=== PATIENT | female | born 1995 | race Caucasian/White ===

== ENCOUNTER 2018-12-07 18:24 | Emergency (ER) | payer SELFPAY ==
[~2018-12-07] VITALS: Ht 172.7 cm; Wt 63.5 kg
[2018-12-07] MEDS ORDERED: ONDANSETRON 4 MG/2 ML (SDV) Z0FRAN ONE (18:48)
[2018-12-07] MEDS ORDERED: ONDANSETRON 4 MG/2 ML (SDV) Z0FRAN IVP ONE ×2 (19:00→20:15)
[2018-12-07 19:11] LABS: BASOPHILS % (AUTO) 0 % (0-10); EOSINOPHILS % (AUTO) 0 % (0-10); HEMATOCRIT 46 % (35-52); HEMOGLOBIN 16.2 G/DL (11.5-16.0); LYMPHOCYTES # (AUTO) 0.5 X 10^3 (1.0-4.0); LYMPHOCYTES % (AUTO) 3 % (12-44); MEAN CORPUSCULAR HEMOGLOBIN 31 PG (25-34); MEAN CORPUSCULAR HGB CONC 36 G/DL (32-36); MEAN CORPUSCULAR VOLUME 88 FL (80-99); MEAN PLATELET VOLUME 10.6 FL (7.4-10.4); MONOCYTES # (AUTO) 0.5 X 10^3 (0.0-1.0); MONOCYTES % (AUTO) 3 % (0-12); NEUTROPHILS # (AUTO) 15.8 X 10^3 (1.8-7.8); NEUTROPHILS % (AUTO) 94 % (42-75); PLATELET COUNT 252 10^3/uL (130-400); RED CELL DISTRIBUTION WIDTH 12.5 % (10.0-14.5); WHITE BLOOD COUNT 16.8 10^3/uL (4.3-11.0)
[2018-12-07] MEDS ORDERED: LACTATED RINGERS 1,500 ML IV PRN (19:15)
[2018-12-07 19:24] LABS: ALANINE AMINOTRANSFERASE 28 U/L (0-55); ALBUMIN 5.2 GM/DL (3.2-4.5); ALKALINE PHOSPHATASE 59 U/L (40-136); CALCIUM 10.9 MG/DL (8.5-10.1); CARBON DIOXIDE 18 MMOL/L (21-32); CHLORIDE 106 MMOL/L (98-107); GLUCOSE 128 MG/DL (70-105); POTASSIUM 3.7 MMOL/L (3.6-5.0); SODIUM 140 MMOL/L (135-145); TOTAL PROTEIN 8.9 GM/DL (6.4-8.2)
[2018-12-07 19:33] LABS: BAND NEUTROPHILS 1 %; BASOPHILS % (MANUAL) 0 %; EOSINOPHILS % (MANUAL) 0 %; LYMPHOCYTES % (MANUAL) 4 %; MONOCYTES % (MANUAL) 3 %; NEUTROPHILS % (MANUAL) 92 %
[2018-12-07 19:34] LABS: RBC MORPH NORMAL
--- NOTE | 2018-12-07 20:04 | ED GI ---
General Chief Complaint: Abdominal/GI Problems Stated Complaint: VOMITTING ALL DAY Nursing Triage Note: PATIENT HERE FOR COMPLAINTS OF VOMITING AND DIARRHEA EVERY 30-60 MINS SINCE 0700 TODAY. DENIES AND PAIN BUT STATES HER STOMACH IS "CHURNING." Sepsis Screen: No Definite Risk Source of Information: Patient, Other Exam Limitations: No Limitations History of Present Illness Date Seen by Provider: Dec 07, 2018 Time Seen by Provider: 18:36 Initial Comments Patient presents to ER by private conveyance with chief complaint of nausea vomiting and diarrhea all day. No fevers or chills. Her brother last week had similar symptoms which resolved spontaneously. She does not have a history of IBS or IBD. She states she does have chronic loose stools but has never had this worked up. No blood in the stool or vomitus. All over abdominal pain worse on the right side of her belly than left. It's improved after she vomits but worse just prior to vomiting. She has not had any Tylenol, ibuprofen etc. She has no history of surgeries on her abdomen. Allergies and Home Medications Allergies Coded Allergies: No Known Drug Allergies (Unverified , 12/07/18) Patient Home Medication List Home Medication List Reviewed: Yes Review of Systems Review of Systems Constitutional: No chills, No diaphoresis, No fever EENTM: No Blurred Vision, No Double Vision Respiratory: Denies Cough, Denies Shortness of Air Cardiovascular: Denies Chest Pain, Denies Edema Gastrointestinal: Denies Abdomen Distended; Abdominal Pain; Denies Constipated ; Diarrhea, Nausea, Vomiting Genitourinary: Denies Burning, Denies Discharge, Denies Drainage Musculoskeletal: No back pain, No joint pain Psychiatric/Neurological: Denies Anxiety, Denies Depressed Past Ybfgkhj-Genpdq-Ivsqur Hx Patient Social History Alcohol Use: Rarely Uses Recreational Drug Use: No Smoking Status: Never a Smoker 2nd Hand Smoke Exposure: No Recent Foreign Travel: No Contact w/Someone Who Travel: No Recent Infectious Disease Expo: No Recent Hopitalizations: No Physical Abuse: No Sexual Abuse: No Seasonal Allergies Seasonal Allergies: No Past Medical History Surgeries: Yes (WISDOM) Respiratory: No Cardiac: No Neurological: No Genitourinary: No Gastrointestinal: No Musculoskeletal: No Endocrine: No HEENT: No Cancer: No Psychosocial: No Integumentary: No Blood Disorders: No Physical Exam Vital Signs Vital Signs - First Documented 12/07/18 18:30 Temp 98.8 Pulse 118 Resp 18 B/P (MAP) 117/79 (92) Pulse Ox 96 Capillary Refill : Less Than 3 Seconds Height/Weight/BMI Height: 5'8.00" Weight: 140lbs. 0oz. [id number]; BMI Method:Stated General Appearance: WD/WN, mild distress HEENT: PERRL/EOMI, normal ENT inspection, pharynx normal (. Oropharynx mildly dry) Respiratory: lungs clear, normal breath sounds, no respiratory distress, no accessory muscle use Cardiovascular: normal peripheral pulses, regular rate, rhythm, no edema Peripheral Pulses: 2+ Dorsalis Pedis (R), 2+ Left Dors-Pedis (L) Gastrointestinal: normal bowel sounds, soft, no organomegaly; No rebound; tenderness (all 4 quadrants but especially right upper and right lower), other ( negative for Jj sign or rebound tenderness over McBurney's point. No mesenteric or psoas signs.) Extremities: normal inspection, no pedal edema, normal capillary refill Progress/Results/Core Measures Results/Orders Lab Results Laboratory Tests Test 12/07/18 18:45 12/07/18 20:04 Range/Units White Blood Count 16.8 H 4.3-11.0 10^3/uL Red Blood Count 5.16 4.35-5.85 10^6/uL Hemoglobin 16.2 H 11.5-16.0 G/DL Hematocrit 46 35-52 % Mean Corpuscular Volume 88 80-99 FL Mean Corpuscular Hemoglobin 31 25-34 PG Mean Corpuscular Hemoglobin Concent 36 32-36 G/DL Red Cell Distribution Width 12.5 10.0-14.5 % Platelet Count 252 130-400 10^3/uL Mean Platelet Volume 10.6 H 7.4-10.4 FL Neutrophils (%) (Auto) 94 H 42-75 % Lymphocytes (%) (Auto) 3 L 12-44 % Monocytes (%) (Auto) 3 0-12 % Eosinophils (%) (Auto) 0 0-10 % Basophils (%) (Auto) 0 0-10 % Neutrophils # (Auto) 15.8 H 1.8-7.8 X 10^3 Lymphocytes # (Auto) 0.5 L 1.0-4.0 X 10^3 Monocytes # (Auto) 0.5 0.0-1.0 X 10^3 Eosinophils # (Auto) 0.0 0.0-0.3 10^3/uL Basophils # (Auto) 0.0 0.0-0.1 10^3/uL Neutrophils % (Manual) 92 % Lymphocytes % (Manual) 4 % Monocytes % (Manual) 3 % Eosinophils % (Manual) 0 % Basophils % (Manual) 0 % Band Neutrophils 1 % Blood Morphology Comment NORMAL Sodium Level 140 135-145 MMOL/L Potassium Level 3.7 3.6-5.0 MMOL/L Chloride Level 106 98-107 MMOL/L Carbon Dioxide Level 18 L 21-32 MMOL/L Anion Gap 16 H 5-14 MMOL/L Blood Urea Nitrogen 20 H 7-18 MG/DL Creatinine 1.10 0.60-1.30 MG/DL Estimat Glomerular Filtration Rate > 60 BUN/Creatinine Ratio 18 Glucose Level 128 H 70-105 MG/DL Calcium Level 10.9 H 8.5-10.1 MG/DL Corrected Calcium 8.5-10.1 MG/DL Total Bilirubin 1.0 0.1-1.0 MG/DL Aspartate Amino Transf (AST/SGOT) 35 H 5-34 U/L Alanine Aminotransferase (ALT/SGPT) 28 0-55 U/L Alkaline Phosphatase 59 40-136 U/L C-Reactive Protein High Sensitivity 0.86 H 0.00-0.50 MG/DL Total Protein 8.9 H 6.4-8.2 GM/DL Albumin 5.2 H 3.2-4.5 GM/DL Urine Color YELLOW Urine Clarity SLIGHTLY CLOUDY Urine pH 5 5-9 Urine Specific [place] 1.015 L 1.016-1.022 Urine Protein 2+ H NEGATIVE Urine Glucose (UA) NEGATIVE NEGATIVE Urine Ketones 4+ H NEGATIVE Urine Nitrite NEGATIVE NEGATIVE Urine Bilirubin NEGATIVE NEGATIVE Urine Urobilinogen NORMAL NORMAL MG/DL Urine Leukocyte Esterase NEGATIVE NEGATIVE Urine RBC (Auto) 3+ H NEGATIVE Urine RBC 2-5 H /HPF Urine WBC 2-5 /HPF Urine Squamous Epithelial Cells 10-25 H /HPF Urine Crystals NONE /LPF Urine Bacteria FEW H /HPF Urine Casts NONE /LPF Urine Mucus LARGE H /LPF Urine Culture Indicated NO Micro Results Microbiology 12/07/18 Influenza Types A,B Antigen (MONE) - Final, Complete My Orders Orders - SHANTA,MYRIAM J Ua Culture If Indicated (12/07/18 18:27) Influenza A And B Antigens (12/07/18 18:27) Ondansetron Injection (Zofran Injectio (12/07/18 18:48) Urine Bedside (12/07/18 18:54) Ondansetron Injection (Zofran Injectio (12/07/18 19:00) Cbc With Automated Diff (12/07/18 19:04) Comprehensive Metabolic Panel (12/07/18 19:04) Hs C Reactive Protein (12/07/18 19:04) Saline Lock/Iv-Start (12/07/18 19:04) Lactated Ringers (Lr 1000 Ml Iv Solution (12/07/18 19:15) Manual Differential (12/07/18 18:45) Ondansetron Injection (Zofran Injectio (12/07/18 20:15) Medications Given in ED Current Medications Medications Dose Ordered Sig/Anna Route Start Time Stop Time Status Last Admin Dose Admin Lactated Ringer's 1,500 ml @ 1,500 mls/hr PRN PRN IV 12/07/18 19:15 12/07/18 19:20 1,500 MLS/HR Ondansetron HCl 4 mg ONCE ONCE IVP 12/07/18 19:00 12/07/18 19:01 DC 12/07/18 18:50 4 MG Ondansetron HCl 4 mg ONCE ONCE IVP 12/07/18 20:15 12/07/18 20:16 DC 12/07/18 20:16 4 MG Vital Signs/I&O 12/07/18 18:30 Temp 98.8 Pulse 118 Resp 18 B/P (MAP) 117/79 (92) Pulse Ox 96 Blood Pressure Mean: 92 Progress Progress Note #1: Time: 20:03 Progress Note She's had a sick contact with similar symptoms and sounds like viral gastroenteritis colitis however she is tender in her right lower quadrant. Some Zofran fixed her nausea but her diarrhea still going. We can consider doing a CT to rule out appendicitis but she's quite comfortable at this time. We'll offer it to her. Give her 1500 cc of LR which is little more than 20 cc/kg. Progress Note #2: Time: 20:51 Progress Note We discussed at length the opportunity to do a CT. She is not really having any significant abdominal pain at this time. Her abdominal exam is even less remarkable now. Still no mesenteric signs. Her nausea is under control after a second dose of Zofran. She would prefer just to follow-up and he is with her primary doctor. I think is reasonable to take a conservative approach as this does appear to be like viral gastroenteritis and colitis. She also has a sick contact in her brother with similar symptoms. We'll send her home with some Zofran and a prescription for that. We have instructed her on return precautions and how to use the Imodium appropriately. We've encouraged lots of fluids. She is looking and feeling much better after IV fluids. Departure Impression Primary Impression: Gastroenteritis and colitis, viral Disposition: HOME, SELF-CARE Condition: Improved Departure-Patient Inst. Decision time for Depature: 20:52 Referrals: NO,LOCAL PHYSICIAN (PCP) Primary Care Physician Patient Instructions: Viral Gastroenteritis, Adult (DC) Add. Discharge Instructions: Drink plenty of fluids. Sports drinks such as Powerade or Gatorade are encouraged. You can use Imodium 2 tablets to start and then one tablet every 4 hours if you' re still having watery stools. Usually best to allow the diarrhea go on for 24- 48 hours before trying to stop it. If you have any nausea use the Zofran 1-2 tablets every 6 hours as needed to control your nausea. If your pain is worse than what Tylenol or Motrin can control or is persistent then you should return to the nearest ER for reevaluation. If you begin to have fevers above 102.5 been he should follow-up with the ER nearest you. Follow-up next week with primary care for reevaluation. All discharge instructions reviewed with patient and/or family. Voiced understanding. Scripts Ondansetron (Ondansetron Odt) 4 Mg Tab.rapdis 4-8 MG PO Q6H PRN for NAUSEA/VOMITING, #20 TAB 0 Refills Prov: MYRIAM WOMACK 12/07/18 MYRIAM WOMACK Dec 07, 2018 20:03
[2018-12-07 20:13] LABS: BILIRUBIN,URINE NEGATIVE (NEGATIVE); CLARITY,URINE SLIGHTLY CLOUDY; COLOR,URINE YELLOW; GLUCOSE, URINE (UA) NEGATIVE (NEGATIVE); KETONES,URINE 4+ (NEGATIVE); LEUKOCYTE ESTERASE ,URINE NEGATIVE (NEGATIVE); NITRITE,URINE NEGATIVE (NEGATIVE); PH,URINE 5 (5-9); PROTEIN,URINE 2+ (NEGATIVE); UROBILINOGEN,URINE NORMAL (NORMAL)
[2018-12-07 20:22] LABS: BACTERIA,URINE FEW /HPF
[2018-12-07 20:32] LABS: BUN/CREATININE RATIO 18
[2018-12-07] MEDS ORDERED: ONDA4TAB11 PO (20:57)
[2018-12-07] MEDS ORDERED: RX-ONDANSETRON 4 MG ODT (ZOFRAN) PPK #4 PO STA (20:58)
[2018-12-07 21:05] VITALS: BP 117/79
[2018-12-07 22:11] LABS: GFR ESTIMATED > 60
--- OUTSIDE RECORDS SUMMARY | 2018-12-09 10:10 | XMS REPORT | Continuity of Care Document ---
Author Author [facility] Organization [facility] Address Unknown Phone Unavailable Allergies Active Description Code Type Severity Reaction Onset Reported/Identified Relationship to Patient Clinical Status Yes No Known Medication Allergies ##NOMEN##,AL1,ceStruct, allergy,[id number] Drug N/A N/A Yes NKDA NKDA N/A N/A 07/28/2009 Yes No Known Drug Allergies [id number] Drug Allergy Mild nkda 10/27/2011 Yes No Known Drug Allergies [id number] Drug Allergy Unknown N/A 12/07/2018 Medications Medication Packaging Start Date Stop Date Route Dosage Sig MUCINEX FOR KIDS 07/28/2009 ORAL otcotc q6h Ibuprofen 200 MG 07/23/2012 600 MG PRN Acetaminophen 500 MG 07/23/2012 500 MG PRN AUGMENTIN CAP 04/24/2013 ORAL [id number] twice daily Norethindrone-E.estradiol-Iron 1MG-10(24) 05/26/2016 1 TABLET DAILY Albuterol Sulfate Hfa 90 MCG 08/2017 2 PUFFS Q4H Norgestimate-Ethinyl Estradiol 0.25 MG-35 MCG 10/05/2017 1 TAB DAILY Problems Date Dx Coded Attending Type Code Diagnosis Diagnosed By 04/24/2013 YVONNE ZURITA, VICKI Wan 462 ACUTE PHARYNGITIS 05/09/2017 Jessica Araujo Other S81.051A OPEN BITE RIGHT KNEE INITIAL ENCOUNTER 05/09/2017 Jessica Araujo Other W54.0XXA BITTEN BY DOG INITIAL ENCOUNTER 05/09/2017 Jessica Araujo Other Z23 ENCOUNTER FOR IMMUNIZATION 07/11/2017 Felix Peterson DO Other S60.121A CONTUSION OF RIGHT INDEX FINGER W DAMAGE TO NAIL INIT 07/11/2017 Felix Peterson DO Other S69.91XA UNSP INJURY OF RIGHT WRIST HAND AND FINGER(S) INIT ENCNTR 07/19/2017 Jessica Araujo Other J45.20 MILD INTERMITTENT ASTHMA UNCOMPLICATED 07/20/2017 Felix Peterson DO Other S60.121D CONTUSION OF RIGHT INDEX FINGER W DAMAGE TO NAIL SUBS 07/20/2017 Felix Peterson DO Other S69.91XD UNSP INJURY OF RIGHT WRIST HAND AND FINGER(S) SUBS ENCNTR 10/05/2017 Phani Carey MD Other J45.909 UNSPECIFIED ASTHMA UNCOMPLICATED 10/05/2017 Phani Carey MD Other Z01.419 ENCNTR FOR SUPERVISOR RIPRAP PLACING EXAM (GENERAL) (ROUTINE) W/O ABN FINDINGS 10/05/2017 Phani Carey MD Other Z12.39 ENCOUNTER FOR OTH SCREENING FOR MALIGNANT NEOPLASM OF BREAST Procedures Code Description [place] [address] CULTURE, BACTERIA, OTHER VICKI RUSSELL MD 04/24/2013 [id number] STREP A ASSAY W/OPTIC VICKI RUSSELL MD 04/24/2013 Results Test Result Range Strep A Screen - 04/24/13 13:41 Strep A Screen NEG Negative Culture Throat - 04/24/13 13:41 Culture Throat SEE NOTE Culture Throat Source THROA Complete blood count (CBC) with automated white blood cell (WBC) differential - 12/07/18 18:45 Blood leukocytes automated count (number/volume) 16.8 10*3/uL 4.3-11.0 Blood erythrocytes automated count (number/volume) 5.16 10*6/uL 4.35-5.85 Venous blood hemoglobin measurement (mass/volume) 16.2 g/dL 11.5-16.0 Blood hematocrit (volume fraction) 46 % 35-52 Automated erythrocyte mean corpuscular volume 88 [foz_us] 80-99 Automated erythrocyte mean corpuscular hemoglobin (mass per erythrocyte) 31 pg 25-34 Automated erythrocyte mean corpuscular hemoglobin concentration measurement ( mass/volume) 36 g/dL 32-36 Automated erythrocyte distribution width ratio 12.5 % 10.0-14.5 Automated blood platelet count (count/volume) 252 10*3/uL 130-400 Automated blood platelet mean volume measurement 10.6 [foz_us] 7.4-10.4 Automated blood neutrophils/100 leukocytes 94 % 42-75 Automated blood lymphocytes/100 leukocytes 3 % 12-44 Blood monocytes/100 leukocytes 3 % 0-12 Automated blood eosinophils/100 leukocytes 0 % 0-10 Automated blood basophils/100 leukocytes 0 % 0-10 Blood neutrophils automated count (number/volume) 15.8 10*3 1.8-7.8 Blood lymphocytes automated count (number/volume) 0.5 10*3 1.0-4.0 Blood monocytes automated count (number/volume) 0.5 10*3 0.0-1.0 Automated eosinophil count 0.0 10*3/uL 0.0-0.3 Automated blood basophil count (count/volume) 0.0 10*3/uL 0.0-0.1 Comprehensive metabolic panel - 12/07/18 18:45 Serum or plasma sodium measurement (moles/volume) 140 mmol/L 135-145 Serum or plasma potassium measurement (moles/volume) 3.7 mmol/L 3.6-5.0 Serum or plasma chloride measurement (moles/volume) 106 mmol/L 98-107 Carbon dioxide 18 mmol/L 21-32 Serum or plasma anion gap determination (moles/volume) 16 mmol/L 5-14 Serum or plasma urea nitrogen measurement (mass/volume) 20 mg/dL 7-18 Serum or plasma creatinine measurement (mass/volume) 1.10 mg/dL 0.60-1.30 Serum or plasma urea nitrogen/creatinine mass ratio 18 NRG Serum or plasma creatinine measurement with calculation of estimated glomerular filtration rate > NRG Serum or plasma glucose measurement (mass/volume) 128 mg/dL 70-105 Serum or plasma calcium measurement (mass/volume) 10.9 mg/dL 8.5-10.1 Serum or plasma total bilirubin measurement (mass/volume) 1.0 mg/dL 0.1-1.0 Serum or plasma alkaline phosphatase measurement (enzymatic activity/volume) 59 U/L 40-136 Serum or plasma aspartate aminotransferase measurement (enzymatic activity/ volume) 35 U/L 5-34 Serum or plasma alanine aminotransferase measurement (enzymatic activity/volume ) 28 U/L 0-55 Serum or plasma protein measurement (mass/volume) 8.9 g/dL 6.4-8.2 Serum or plasma albumin measurement (mass/volume) 5.2 g/dL 3.2-4.5 Serum or plasma C reactive protein measurement (mass/volume) - 12/07/18 18:45 Serum or plasma C reactive protein measurement (mass/volume) 0.86 mg /dL 0.00-0.50 Blood manual differential performed detection - 12/07/18 18:45 Blood monocytes/100 leukocytes 3 % NRG Manual blood segmented neutrophils/100 leukocytes 92 % NRG Blood band neutrophils/100 leukocytes 1 % NRG Manual blood lymphocytes/100 leukocytes 4 % NRG Manual eosinophils/100 leukocytes in nose 0 % NRG Manual blood basophils/100 leukocytes 0 % NRG Blood erythrocyte morphology finding identification NORMAL NRG Influenza virus A and B antigen detection - 12/07/18 18:52 FLU RESULT NEGATIVE FOR INFLUENZA A AND B ANTIGENS BY IA NRG Complete urinalysis with reflex to culture - 12/07/18 20:04 Urine color determination YELLOW NRG Urine clarity determination SLIGHTLY CLOUDY NRG Urine pH measurement by test strip 5 5-9 Specific gravity of urine by test strip 1.015 1.016- 1.022 Urine protein assay by test strip, semi-quantitative 2+ NEGATIVE Urine glucose detection by automated test strip NEGATIVE NEGATIVE Erythrocytes detection in urine sediment by light microscopy 3+ NEGATIVE Urine ketones detection by automated test strip 4+ NEGATIVE Urine nitrite detection by test strip NEGATIVE NEGATIVE Urine total bilirubin detection by test strip NEGATIVE NEGATIVE Urine urobilinogen measurement by automated test strip (mass/volume) NORMAL NORMAL Urine leukocyte esterase detection by dipstick NEGATIVE NEGATIVE Automated urine sediment erythrocyte count by microscopy (number/high power field) [HPF] NRG Automated urine sediment leukocyte count by microscopy (number/high power field ) [HPF] NRG Bacteria detection in urine sediment by light microscopy FEW NRG Squamous epithelial cells detection in urine sediment by light microscopy 10-25 NRG Crystals detection in urine sediment by light microscopy NONE NRG Casts detection in urine sediment by light microscopy NONE NRG Mucus detection in urine sediment by light microscopy LARGE NRG Complete urinalysis with reflex to culture NO NRG Encounters ACCT No. Visit Date/Time Discharge Status Pt. Type Provider Facility Loc./Unit Complaint [id number] 04/24/2013 13:34:00 04/24/2013 13:34:00 DIS Outpatient YVONNE ZURITA, VICKI [facility] [id number] 05/28/2018 16:04:00 Document Registration [id number] 05/22/2015 08:38:30 05/22/2015 08:38:31 DIS Outpatient [id number] 12/07/2018 18:26:00 12/07/2018 21:09:00 DIS Emergency SHANTA ZURITA, MYRIAM Valero [facility] ER VOMITTING ALL DAY [id number] 10/05/2017 09:15:00 10/05/2017 23:59:59 CLS Outpatient Aurelio ZURITA, [facility].OBGYN ANNUAL [id number] 08/30/2017 11:44:00 08/30/2017 23:59:59 CLS Outpatient Aurelio ZURITA, [facility].ORT [id number] 07/20/2017 15:00:00 07/20/2017 23:59:59 [facility] Outpatient Nicholas WOLFE [facility].ORT RT INDEX FINGER RE [id number] 07/19/2017 11:45:00 07/19/2017 23:59:59 [facility] Outpatient Dwaine GUIDRY [facility].WALKIN Vomiting [id number] 07/11/2017 11:07:00 07/11/2017 23:59:59 [facility] IMG.HO.RAD RT FINGER INJURY [id number] 07/11/2017 11:00:00 07/11/2017 23:59:59 [facility].ORT RT INDEX FINGER NEW PT [id number] 05/09/2017 11:55:00 05/09/2017 23:59:59 [facility] Outpatient Dwaine GUIDRY [facility].WALKIN DOG BITE ON LEG/KNEE [id number] 05/26/2016 09:15:00 05/26/2016 23:59:59 [facility] Outpatient Aurelio ZURITA, [facility].OBGYN
== END 2018-12-07 21:09 | disposition home or self-care (01) ==
LOC: ER 18:26
DX: A08.4 Viral intestinal infection, unspecified (principal)
CPT/HCPCS: 36415; 80053; 81000; 85007; 85027; 86141; 87804